=== PATIENT | female | born 1940 | race Caucasian/White ===

== ENCOUNTER 2022-12-25 20:08 | Emergency (ER) | payer MEDICARE ==
[~2022-12-25] VITALS: Ht 167.6 cm; Wt 113.6 kg
[~2022-12-25 20:08] MED LIST: ASPIRIN E.C. 8181 MG PO; COZAAR100 MG PO; LIPITOR 10MG10 MG PO; LIPITOR 40MG TA40 MG PO; MUCINEX 60600 MG/TA1 PO; MUCUS RELIEF400 M1 PO; NITROSTAT0.3 MG SL; NITROSTAT0.4 MG/TAB SL; PRAVACHOL 20MG20 MG PO; PRILOSEC 20MG20 MG PO; STOOL SOFTENER100 M2 PO; TOPROL XL 25MG25 MG PO
[2022-12-25] MEDS ORDERED: ULTRAM 50MG TAB50 MG PO (21:12)
[2022-12-25 21:45] VITALS: BP 203/88; PULSE 86; TEMP 98.2
== END 2022-12-25 21:45 | disposition home or self-care (01) ==
LOC: COL.ER 20:08
DX: S89.91XA Unspecified injury of right lower leg, initial encounter (principal); X50.1XXA Overexertion from prolonged static or awkward postures, initial encounter
CPT/HCPCS: L1830; L1846